=== PATIENT | female | born 1940 | race Caucasian/White ===

== ENCOUNTER 2025-04-03 13:47 | Inpatient (IN) | payer OTHER, MEDICARE ==
[2025-04-03] MEDS: SODIUM CHLORIDE 0.9% 500 ML INFUS.BAG IV ONE (14:52)
[2025-04-03 14:54] LABS: ABSOLUTE IMMATURE GRANULOCYTES 0.02 x10^3/uL (0.0-0.031); BASOPHILS # 0.02 x10^3/uL (0.01-0.08); EOSINOPHIL % 2.1 % (0.7-5.8); EOSINOPHILS # 0.10 x10^3/uL (0.04-0.36); MCHC 33.0 g/dl (32.2-35.5); MEAN CELL VOLUME 93.4 fl (79.4-94.8); MEAN PLT VOLUME 9.2 fl (9.4-12.3); MONOCYTE # 0.11 x10^3/uL (0.24-0.86); MONOCYTE % 2.3 % (4.7-12.5); RDW 12.7 % (12.5-17.0)
[2025-04-03 15:02] LABS: INR 1.65 (0.83-1.09); PROTHROMBIN TIME (PATIENT) 18.1 SEC (9.7-13.0)
[2025-04-03 15:04] LABS: ACTIVATED PTT 27.6 SECONDS (25.2-36.5)
[2025-04-03 15:24] LABS: GLUCOSE,RANDOM 167.0 mg/dL (74-106)
[2025-04-03 15:25] LABS: CO2 28.0 mmol/L (21-32)
[2025-04-03 15:27] LABS: CREATININE 0.7 mg/dL (0.55-1.3)
[2025-04-03 15:28] LABS: SGOT/AST 170.0 U/L (15-37); SGPT/ALT 236.0 U/L (13-61)
[2025-04-03 15:29] LABS: TOT PROT 5.6 g/dl (6.4-8.2)
[2025-04-03 15:30] LABS: ALK PHOS 119.0 U/L (45-117)
[2025-04-03 15:33] LABS: LDH 187.0 U/L (84-246)
[2025-04-03 15:39] LABS: ERYTHROCYTE SEDIMENTATION RATE 10 mm/hr (0-30)
[2025-04-03] MEDS ORDERED: ONDANSETRON 4 MG/2 ML VIAL ONE (15:42)
[2025-04-03] MEDS: ONDANSETRON 4 MG/2 ML VIAL IVPUSH ONE (15:45)
[2025-04-03 16:17] LABS: HIV INTERPRETATION NEGATIVE (NEGATIVE)
[2025-04-03 18:21] LABS: URINE APPEARANCE CLOUDY; URINE BILIRUBIN NEGATIVE (NEGATIVE); URINE COLOR DK YELLOW; URINE GLUCOSE (UA) NEGATIVE (NEGATIVE); URINE KETONE NEGATIVE (NEGATIVE)
[2025-04-03 18:22] LABS: URINE LEUK ESTERASE 3+ (NEGATIVE); URINE NITRITE NEGATIVE (NEGATIVE); URINE PROTEIN 100 (NEGATIVE); URINE UROBILINOGEN 1.0 mg/dL (0.2-1.0)
[2025-04-03] MEDS: LIDOCAINE 5% TOPICAL PATCH TP ONE (22:36)
[2025-04-03 23:32] VITALS: BMI 24.0
[2025-04-03 23:50] LABS: HCV DIAGNOSTIC IN-HOUSE W/RFLX NON-REACTIVE (NONREACTIVE)
[2025-04-04] MEDS: MELATONIN 5 MG TABLETS PO PRN (01:13)
[2025-04-04 08:35] LABS: MCHC 33.7 g/dl (32.2-35.5); MEAN CELL VOLUME 94.1 fl (79.4-94.8); MEAN PLT VOLUME 9.1 fl (9.4-12.3); RDW 12.8 % (12.5-17.0)
[2025-04-04 08:39] LABS: IRON SERUM 124 ug/dL (50-175)
[2025-04-04] MEDS: LIDOCAINE PATCH REMOVAL MC ONE (10:00)
[2025-04-04 12:35] LABS: ALK PHOS 94.0 U/L (45-117); CO2 28.0 mmol/L (21-32); CREATININE 0.7 mg/dL (0.55-1.3); GLUCOSE,RANDOM 164.0 mg/dL (74-106); SGOT/AST 59.0 U/L (15-37); SGPT/ALT 148.0 U/L (13-61); TOT PROT 4.7 g/dl (6.4-8.2)
[2025-04-05 08:06] LABS: ABSOLUTE IMMATURE GRANULOCYTES 0.02 x10^3/uL (0.0-0.031); BASOPHILS # 0.02 x10^3/uL (0.01-0.08); EOSINOPHIL % 4.8 % (0.7-5.8); EOSINOPHILS # 0.35 x10^3/uL (0.04-0.36); MCHC 32.9 g/dl (32.2-35.5); MEAN CELL VOLUME 93.6 fl (79.4-94.8); MEAN PLT VOLUME 9.2 fl (9.4-12.3); MONOCYTE # 0.21 x10^3/uL (0.24-0.86); MONOCYTE % 2.9 % (4.7-12.5); RDW 12.8 % (12.5-17.0)
[2025-04-05 08:34] LABS: CO2 26.0 mmol/L (21-32)
[2025-04-05 08:35] LABS: GLUCOSE,RANDOM 185.0 mg/dL (74-106)
[2025-04-05 08:37] LABS: SGOT/AST 24.0 U/L (15-37); SGPT/ALT 99.0 U/L (13-61)
[2025-04-05 08:38] LABS: CREATININE 0.8 mg/dL (0.55-1.3)
[2025-04-05 08:39] LABS: TOT PROT 4.9 g/dl (6.4-8.2)
[2025-04-05 08:40] LABS: ALK PHOS 86.0 U/L (45-117)
[2025-04-05] MEDS: SODIUM CHLORIDE 1,000 ML IV SCH (12:30)
[2025-04-05] MEDS: PANTOPRAZOLE 40 MG TABLET PO SCH (15:28)
[2025-04-05] MEDS: VANCOMYCIN HCL 125 MG CAPSULE (RESTRICTED TO ID ONLY) PO SCH (17:41)
[2025-04-05] MEDS: HEPARIN NA (PORCINE) 5,000 UNITS/ML 1ML VIAL SQ SCH (22:08)
[2025-04-05] MEDS: INSULIN ASPART SLIDING SCALE (NOVOLOG) 1 VIAL SQ SCH (22:09)
[2025-04-06 07:31] LABS: ABSOLUTE IMMATURE GRANULOCYTES 0.02 x10^3/uL (0.0-0.031); BASOPHILS # 0.01 x10^3/uL (0.01-0.08); EOSINOPHIL % 11.0 % (0.7-5.8); EOSINOPHILS # 0.60 x10^3/uL (0.04-0.36); MCHC 33.3 g/dl (32.2-35.5); MEAN CELL VOLUME 93.0 fl (79.4-94.8); MEAN PLT VOLUME 8.7 fl (9.4-12.3); MONOCYTE # 0.15 x10^3/uL (0.24-0.86); MONOCYTE % 2.8 % (4.7-12.5); RDW 12.8 % (12.5-17.0)
[2025-04-06 07:53] LABS: CO2 25.0 mmol/L (21-32); GLUCOSE,RANDOM 180.0 mg/dL (74-106)
[2025-04-06 07:56] LABS: CREATININE 0.8 mg/dL (0.55-1.3); SGOT/AST 14.0 U/L (15-37); SGPT/ALT 63.0 U/L (13-61)
[2025-04-06 07:58] LABS: ALK PHOS 74.0 U/L (45-117); TOT PROT 4.6 g/dl (6.4-8.2)
[2025-04-07 08:02] LABS: ABSOLUTE IMMATURE GRANULOCYTES 0.00 x10^3/uL (0.0-0.031); BASOPHILS # 0.01 x10^3/uL (0.01-0.08); EOSINOPHIL % 18.5 % (0.7-5.8); EOSINOPHILS # 0.43 x10^3/uL (0.04-0.36); MCHC 33.3 g/dl (32.2-35.5); MEAN CELL VOLUME 93.8 fl (79.4-94.8); MEAN PLT VOLUME 8.6 fl (9.4-12.3); MONOCYTE # 0.10 x10^3/uL (0.24-0.86); MONOCYTE % 4.3 % (4.7-12.5); RDW 13.0 % (12.5-17.0)
[2025-04-07 08:23] LABS: INR 1.8 (0.83-1.09); PROTHROMBIN TIME (PATIENT) 19.8 SEC (9.7-13.0)
[2025-04-07 08:29] LABS: CO2 23.0 mmol/L (21-32); GLUCOSE,RANDOM 167.0 mg/dL (74-106)
[2025-04-07 08:32] LABS: CREATININE 0.6 mg/dL (0.55-1.3); SGOT/AST 10.0 U/L (15-37); SGPT/ALT 38.0 U/L (13-61)
[2025-04-07 08:34] LABS: TOT PROT 4.2 g/dl (6.4-8.2)
[2025-04-07 08:35] LABS: ALK PHOS 57.0 U/L (45-117)
[2025-04-07 10:07] LABS: FIBROSIS SCORE. 0.87 (0.00-0.21); HCV ALPHA 2 MACRO CHART 250 mg/dL (110-276); NECRO.INFLAM ACT.SCORE 0.81 (0.00-0.17); NECROINFLAM. ACTIVITY GRADE A3-Severe activity (.)
[2025-04-07] MEDS: TBO-FILGRASTIM 480 MCG/0.8 ML DISP.SYRIN SQ SCH (15:44)
[2025-04-07 20:36] LABS: HEPATITIS B SURF AG NON-MATERN NON-REACTIVE (NONREACTIVE)
[2025-04-08 08:02] LABS: MCHC 33.4 g/dl (32.2-35.5); MEAN CELL VOLUME 93.5 fl (79.4-94.8); MEAN PLT VOLUME 8.2 fl (9.4-12.3); RDW 13.0 % (12.5-17.0)
[2025-04-08 08:51] LABS: CO2 26.0 mmol/L (21-32); GLUCOSE,RANDOM 146.0 mg/dL (74-106)
[2025-04-08 08:53] LABS: CREATININE 0.5 mg/dL (0.55-1.3)
[2025-04-08 08:54] LABS: SGOT/AST 10.0 U/L (15-37); SGPT/ALT 28.0 U/L (13-61)
[2025-04-08 08:56] LABS: ALK PHOS 47.0 U/L (45-117)
[2025-04-08 08:57] LABS: TOT PROT 4.1 g/dl (6.4-8.2)
[2025-04-08 13:02] LABS: MCHC 33.6 g/dl (32.2-35.5); MEAN CELL VOLUME 93.7 fl (79.4-94.8); MEAN PLT VOLUME 8.4 fl (9.4-12.3); RDW 13.2 % (12.5-17.0)
[2025-04-09 07:10] LABS: MCHC 33.7 g/dl (32.2-35.5); MEAN CELL VOLUME 92.6 fl (79.4-94.8); MEAN PLT VOLUME 8.2 fl (9.4-12.3); RDW 13.1 % (12.5-17.0)
[2025-04-09 07:50] LABS: CO2 24.0 mmol/L (21-32); GLUCOSE,RANDOM 143.0 mg/dL (74-106)
[2025-04-09 07:53] LABS: CREATININE 0.5 mg/dL (0.55-1.3)
[2025-04-09 07:54] LABS: SGOT/AST 10.0 U/L (15-37); SGPT/ALT 22.0 U/L (13-61)
[2025-04-09 07:55] LABS: TOT PROT 4.4 g/dl (6.4-8.2)
[2025-04-09 07:56] LABS: ALK PHOS 46.0 U/L (45-117)
[2025-04-09] MEDS ORDERED: LOPERAMIDE HCL 2 MG CAPSULE PO PRN (08:51)
[2025-04-09] MEDS: POTASSIUM CHLORIDE ORAL LIQUID 20 MEQ/15 ML PO ONE (09:42)
[2025-04-09] MEDS ORDERED: BANATROL PLUS POWDER PACKET PO SCH (14:00)
[2025-04-09] MEDS: URSODIOL 300 MG CAPSULE PO SCH (21:44)
[2025-04-10 07:36] LABS: MCHC 34.1 g/dl (32.2-35.5); MEAN CELL VOLUME 91.8 fl (79.4-94.8); MEAN PLT VOLUME 8.6 fl (9.4-12.3); RDW 13.3 % (12.5-17.0)
[2025-04-10 09:42] LABS: CREATININE 0.5 mg/dL (0.55-1.3)
[2025-04-10 09:44] LABS: TOT PROT 4.3 g/dl (6.4-8.2)
[2025-04-10 10:08] LABS: GLUCOSE,RANDOM 152.0 mg/dL (74-106)
[2025-04-10 10:10] LABS: SGOT/AST 9.0 U/L (15-37)
[2025-04-10 10:14] LABS: ALK PHOS 44.0 U/L (45-117); CO2 19.0 mmol/L (21-32); SGPT/ALT 18.0 U/L (13-61)
[2025-04-10] MEDS ORDERED: METOPROLOL TARTRATE 5 MG/5 ML VIAL IVPUSH PRN (13:26)
[2025-04-10] MEDS: METOPROLOL TARTRATE 25 MG TABLET (FP) PO SCH ×2 (13:52→22:36)
[2025-04-10] MEDS: MEROPENEM 1 GM in DEXTROSE 5%-WATER 100 ML IVPB SCH (15:14)
[2025-04-10] MEDS: VANCOMYCIN 1 GM PREMIX (F) 1 GM/200 ML BAG IVPB ONE (17:32)
[2025-04-11 06:43] LABS: MCHC 34.2 g/dl (32.2-35.5); MEAN CELL VOLUME 91.0 fl (79.4-94.8); MEAN PLT VOLUME 8.8 fl (9.4-12.3); RDW 13.6 % (12.5-17.0)
[2025-04-11 07:05] LABS: CO2 24.0 mmol/L (21-32); GLUCOSE,RANDOM 120.0 mg/dL (74-106)
[2025-04-11 07:08] LABS: SGPT/ALT 15.0 U/L (13-61)
[2025-04-11 07:10] LABS: CREATININE 0.3 mg/dL (0.55-1.3); SGOT/AST 6.0 U/L (15-37); TOT PROT 3.9 g/dl (6.4-8.2)
[2025-04-11 07:12] LABS: ALK PHOS 38.0 U/L (45-117)
[2025-04-11 09:43] LABS: MONOCYTE # 0.44 x10^3/uL (0.24-0.86)
[2025-04-11] MEDS: POTASSIUM CHLORIDE ORAL LIQUID 20 MEQ/15 ML PO ONE (11:25)
[2025-04-11] MEDS: KCL 10 MEQ IVPB 10 MEQ/100 ML INFUS.BAG IVPB SCH (12:32)
[2025-04-11] MEDS: ACETAMINOPHEN 1000 MG/100 ML BAG IVPB ONE (12:51)
[2025-04-11] MEDS: ACETAMINOPHEN 1000 MG/100 ML BAG IVPB PRN (22:37)
[2025-04-12 08:50] LABS: MCHC 33.3 g/dl (32.2-35.5); MEAN CELL VOLUME 93.0 fl (79.4-94.8); MEAN PLT VOLUME 8.9 fl (9.4-12.3); RDW 14.5 % (12.5-17.0)
[2025-04-12 09:31] LABS: CO2 24.0 mmol/L (21-32); GLUCOSE,RANDOM 78.0 mg/dL (74-106)
[2025-04-12 09:35] LABS: CREATININE 0.3 mg/dL (0.55-1.3); SGOT/AST 18.0 U/L (15-37); SGPT/ALT 18.0 U/L (13-61)
[2025-04-12 09:36] LABS: TOT PROT 3.8 g/dl (6.4-8.2)
[2025-04-12 09:37] LABS: ALK PHOS 42.0 U/L (45-117)
[2025-04-12 09:44] LABS: MONOCYTE # 0.79 x10^3/uL (0.24-0.86)
[2025-04-12] MEDS: KCL 10 MEQ IVPB 10 MEQ/100 ML INFUS.BAG IVPB SCH (16:02)
[2025-04-12] MEDS: POTASSIUM CHLORIDE ORAL LIQUID 20 MEQ/15 ML PO ONE (16:03)
[2025-04-12] MEDS: ACETAMINOPHEN 1000 MG/100 ML BAG IVPB ONE (18:23)
[2025-04-13 07:44] LABS: MCHC 33.6 g/dl (32.2-35.5); MEAN CELL VOLUME 92.8 fl (79.4-94.8); MEAN PLT VOLUME 9.0 fl (9.4-12.3); RDW 15.1 % (12.5-17.0)
[2025-04-13 07:56] LABS: CO2 26 mmol/L (21-32); GLUCOSE,RANDOM 77 mg/dL (74-106)
[2025-04-13 07:59] LABS: CREATININE 0.4 mg/dL (0.55-1.3); SGPT/ALT 22 U/L (13-61)
[2025-04-13 08:00] LABS: SGOT/AST 30 U/L (15-37)
[2025-04-13 08:01] LABS: TOT PROT 4.2 g/dl (6.4-8.2)
[2025-04-13 08:02] LABS: ALK PHOS 65 U/L (45-117)
[2025-04-13] MEDS: LOPERAMIDE HCL 2 MG CAPSULE PO PRN (14:47)
[2025-04-13] MEDS: BANATROL PLUS POWDER PACKET PO SCH (14:47)
[2025-04-13] MEDS: MULTIVITAMINS (DAILY MVI) TABLET (FP) PO SCH (14:47)
[2025-04-13] MEDS: KCL 10 MEQ IVPB 10 MEQ/100 ML INFUS.BAG IVPB SCH (15:34)
[2025-04-13] MEDS: POTASSIUM CHLORIDE ORAL LIQUID 20 MEQ/15 ML PO ONE (15:34)
[2025-04-13] MEDS: LACTOBACILLUS ACIDOPHILUS 1 TABLET PO SCH (15:34)
[2025-04-13] MEDS: AMINO ACIDS/PROTEIN HYDROLYS 30 ML LIQUID.PKT PO SCH (17:04)
[2025-04-13] MEDS: POTASSIUM PHOSPHATE 15 MM in DEXTROSE 5%-WATER - 250 ML IVPB ONE (21:17)
[2025-04-13] MEDS: ASCORBIC ACID 500 MG TABLET (FP) PO SCH (21:17)
[2025-04-14] MEDS: KCL 10 MEQ IVPB 10 MEQ/100 ML INFUS.BAG IVPB SCH (16:01)
[2025-04-14] MEDS: POTASSIUM CHLORIDE ORAL LIQUID 20 MEQ/15 ML PO SCH (22:09)
[2025-04-15 02:38] LABS: EPI CELLS >36 /uL (0-25.1); HYALINE CASTS 2 /uL (0-3.1); URINE APPEARANCE Error; URINE BACTERIA 15 /uL (0-1359); URINE BILIRUBIN NEGATIVE (NEGATIVE); URINE COLOR YELLOW; URINE GLUCOSE (UA) NEGATIVE (NEGATIVE); URINE KETONE TRACE (NEGATIVE); URINE LEUK ESTERASE 1+ (NEGATIVE); URINE NITRITE NEGATIVE (NEGATIVE); URINE PROTEIN 1+ (NEGATIVE); URINE UROBILINOGEN 0.2 mg/dL (0.2-1.0)
[2025-04-15 05:05] LABS: URINE RBC 143.3 /uL (0-23.9); YEAST PRESENT (NEGATIVE)
[2025-04-15 07:38] LABS: MCHC 32.5 g/dl (32.2-35.5); MEAN CELL VOLUME 95.8 fl (79.4-94.8); MEAN PLT VOLUME 9.6 fl (9.4-12.3); RDW 16.2 % (12.5-17.0)
[2025-04-15 08:01] LABS: CO2 25.0 mmol/L (21-32); GLUCOSE,RANDOM 117.0 mg/dL (74-106)
[2025-04-15 08:03] LABS: CREATININE 0.3 mg/dL (0.55-1.3)
[2025-04-15] MEDS: KCL 10 MEQ IVPB 10 MEQ/100 ML INFUS.BAG IVPB SCH (09:42)
[2025-04-15] MEDS: ACETAMINOPHEN 325 MG TABLET (FP) PO PRN (10:41)
[2025-04-16 08:07] LABS: MCHC 33.2 g/dl (32.2-35.5); MEAN CELL VOLUME 94.4 fl (79.4-94.8); MEAN PLT VOLUME 9.2 fl (9.4-12.3); RDW 16.3 % (12.5-17.0)
[2025-04-16 08:28] LABS: CO2 26.0 mmol/L (21-32); GLUCOSE,RANDOM 79.0 mg/dL (74-106)
[2025-04-16 08:31] LABS: CREATININE 0.3 mg/dL (0.55-1.3)
[2025-04-16 11:58] VITALS: BP 105/64; PULSE 81; RESP 16; TEMP 98.1
== END 2025-04-16 11:43 | DRG 394 ==
LOC: JER 13:47 → JERBED 17:53 → J7W 20:15 → J4S 04-10 12:15
PROVIDERS: ADMIT Family Medicine; ATTEND Family Medicine
DX: K52.1 Toxic gastroenteritis and colitis (principal); R64 Cachexia; I48.91 Unspecified atrial fibrillation; A04.72 Enterocolitis due to Clostridium difficile, not specified as recurrent; E11.9 Type 2 diabetes mellitus without complications; T45.1X5A Adverse effect of antineoplastic and immunosuppressive drugs, initial encounter; R26.2 Difficulty in walking, not elsewhere classified; C50.911 Malignant neoplasm of unspecified site of right female breast; R74.01 Elevation of levels of liver transaminase levels; K83.8 Other specified diseases of biliary tract; I10 Essential (primary) hypertension; Z68.24 Body mass index [BMI] 24.0-24.9, adult; E86.0 Dehydration; L98.499 Non-pressure chronic ulcer of skin of other sites with unspecified severity; Z88.0 Allergy status to penicillin
CPT/HCPCS: 0241U-QW; 36415; 71045-TC-FY; 74018-TC-FY; 74177-TC; 74181-TC; 80048; 80053; 81003; 82172; 82310; 82550; 82962; 82977; 83010; 83540; 83550; 83605; 83615; 83735; 83883; 84100; 84439; 84443; 84460; 84484; 85025; 85027; 85610; 85651; 85730; 86140; 86704; 86705; 86708; 86803; 86850; 86900; 86901; 87040; 87045; 87046; 87077; 87086; 87209; 87324; 87328; 87329; 87340; 87350; 87389; 87449; 87517; 87798; 93005; 93010; 93306-TC; 97161-GP; 99285-25; E0186; J1447; Q9967